=== PATIENT | female | born 1960 | race Caucasian/White ===

== ENCOUNTER 2017-10-23 06:30 | Inpatient (IN) | payer OTHER ==
[~2017-10-23] VITALS: Ht 175.3 cm; Wt 81.6 kg
[~2017-10-23 06:30] MED LIST: DOXYCYCLINE PO
[2017-10-23 06:34] VITALS: BP 132/67
[2017-10-23 07:48] LABS: ABSOLUTE EOSINOPHILS 0.1 thou/uL (0.0-0.7); ABSOLUTE LYMPHOCYTES 1.9 thou/uL (0.8-5.3); ABSOLUTE MONOCYTES 0.4 thou/uL (0.0-1.2); ABSOLUTE NEUTROPHILS 3.3 thou/uL (1.6-8.1); BASOPHILS 0.5 %; EOSINOPHILS 1.1 %; HEMATOCRIT 40.3 % (37.0-47.0); HEMOGLOBIN 13.3 gm/dL (12.0-15.0); LYMPHOCYTES 33.9 %; MCH 28.9 pg (26.0-34.0); MCHC 32.9 g/dL (28.0-37.0); MCV 87.8 fL (80.0-100.0); MONOCYTES 6.4 %; MPV 8.7 fl. (7.2-11.1); NUCLEATED RBCS 0 /100WBC; PLATELET COUNT* 193 thou/uL (150-400); POLYS 58.1 %; RBC 4.59 mil/uL (4.20-5.00); RDW-CV 13.7 % (10.5-14.5); WBC 5.7 thou/uL (4.0-11.0)
[2017-10-23 07:53] LABS: ANION GAP 8 mmol/L (7-16); BUN 15 mg/dL (7-18); CALCIUM 9.7 mg/dL (8.5-10.1); CHLORIDE 106 mmol/L (98-107); CO2 27 mmol/L (21-32); CREATININE 0.8 mg/dL (0.6-1.3); GLUCOSE 81 mg/dL (70-99); POTASSIUM 3.6 mmol/L (3.5-5.1); SODIUM 141 mmol/L (136-145)
[2017-10-23 08:04] LABS: ALBUMIN 3.9 g/dL (3.4-5.0); ALKALINE PHOSPHATASE 85 U/L (46-116); LIPASE 156 U/L (73-393); MAGNESIUM 2.2 mg/dL (1.8-2.4); NT-PRO BRAIN NAT PEPTIDE 49 pg/mL (<300); SGOT 16 U/L (15-37); SGPT 23 U/L (30-65); TOTAL BILIRUBIN 0.4 mg/dL (<0.1-1.0); TOTAL PROTEIN 7.4 g/dL (6.4-8.2); TROPONIN-I LEVEL <0.06 ng/mL (<0.06)
[2017-10-23 09:56] VITALS: BP 119/65
[2017-10-23 10:05] VITALS: BP 114/64
[2017-10-23] MEDS ORDERED: ALLEGRA-D 24 H1 EACH PO (10:40)
[2017-10-23] MEDS ORDERED: UNICOMPLEX M TA1 TA1 PO ×2 (10:41)
[2017-10-23] MEDS ORDERED: CALCIUM 500 +1 EAC5 PO (10:41)
--- NOTE | 2017-10-23 11:39 | NUR ---
RECIEVED REPORT FROM LUZMA IN ED AND ASSUMED CARE OF PT @ 1005.PT IS A/O X4,VSS,TRACING SR ON THE MONITOR.LUNG SOUNDS ARE CLEAR DIMINSHED.PT ON 2L O2 NC PER CHEST PAIN PROTOCOL WITH O2 SAT @ 100% LAST BM WAS YESTERDAY.IV RIGHT AC PATENT AND SALINE LOCKED.PT IS ANXIOUS BUT COOPERATIVE.PT C/O HEADACHE PAIN AND CHEST TIGHTNESS-RECEIVED MEDICATIONS IN THE ED WITH NO RELIEF.PT UP AD ROYER IN THE ROOM.PT LEFT RESTING IN BED WITH CALL LIGHT IN PLACE. FAMILY AT BEDSIDE.WILL CONTINUE TO MONITOR.
[2017-10-23 11:49] VITALS: BP 99/60
--- NOTE | 2017-10-23 12:13 | EKG ---
[place] [address] ELECTROCARDIOGRAM REPORT Name: LIV GORMAN Room: [address] IN [facility]#: [id number] Admission: 10/23/17 Attend Phys: Seven Calderon, Discharge: Date of : 58 Report #: [id number] THIS REPORT FOR: //name// [facility] ED Test Date: 2017-10-23 Test Time: 06:38:18 Pat Name: LIV GORMAN Department: Room: Gender: F Second Language Tutor: JEREMIAH : 1960 Requested By: Randell Avina Order Number: [id number] MD: Sergey Jama Measurements Intervals [place] Rate: 76 P: 34 ID: 122 QRS: 60 QRSD: 104 T: 26 QT: 405 QTc: 456 Interpretive Statements Sinus rhythm nonspecific st changes Compared to ECG 01/07/2012 23:02:36 st changes noted Electronically Signed On 10-23-2017 12:13:47 CDT by Sergey Jama [email or web address] <ELECTRONICALLY SIGNED> By: Sergey Jama MD, [facility] 10/23/17 1213 7 7 Sergey aJma MD, FACC /EPI
--- NOTE | 2017-10-23 17:17 | EXE ---
[place] [address] STRESS ECHOCARDIOGRAM Name: GORMANLIV Room: [address] IN [facility]#: [id number] Admission: 10/23/17 Attend Phys: Seven Carter Discharge: Date of : 58 Date of Service: 10/23/17 1717 Report #: [id number] THIS REPORT FOR: //name// APPROVED REPORT Study performed: 10/23/2017 16:15:31 Exam: Stress Echocardiogram Indication: Chest pain , Dyspnea Patient Location: In-Patient Stress Nurse: Majo Cohen RN Supervising Physician: Sergey Jama MD Ht: 5 ft 9 in HR: 78 bpm BP: 116/77 mmHg Medical History Medications: Aspirin Procedure The patient underwent an Exercise Stress Test using the Ayden Protocol. Blood pressure, heart rate, and EKG were monitored. An Echocardiogram was performed by nuclear medicine technician in four stages in quad fashion. At peak stress, four selected images were obtained and placed side by side with resting images for comparison. Stress Test Details Stress Test: Exercise stress testing was performed using a Ayden protocol. HR Resting HR: 78 bpm Max Heart Rate (APMHR): 162 bpm Max HR Achieved: 145 bpm Target HR (85% APMHR): 137 bpm % of APMHR: 89 Recovery HR: 65 bpm HR response to stress: Normal HR response to stress BP Resting BP: 116/77 mmHg Max BP: 168/62 mmHg Recovery BP: 124/60 mmHg ECG Resting ECG: Sinus Rhythm Stress ECG: Sinus Rhythm, nonspecific ST-T abnormalities ST Change: [place] [address] STRESS ECHOCARDIOGRAM Name: LIV GORMAN Room: [address] IN [facility]#: [id number] Admission: 10/23/17 Attend Phys: Seven Carter Discharge: Date of : 58 Date of Service: 10/23/17 1717 Report #: [id number] Maximum [address] Deviation: 0.5 mm Arrhythmia: SVT of 5 beats Recovery ECG: Sinus Rhythm, nonspecific ST-T abnormalities Recovery ST Change: Upsloping ST depression Recovery ST Deviation: 0.5 mm Recovery Arrhythmia: VPC Clinical Reason for Termination: Dyspnea Exercise duration: 5 min 55 sec Highest Stage Achieved: Stage 2: 2.5 mph at 12% grade. Exercise capacity: 7.05 METs Pre-Stress Echo The resting Echocardiogram showed normal left ventricular contractility with an estimated Ejection Fraction of about 55-60%. Post-Stress Echo The stress Echocardiogram showed normal left ventricular contractility with an estimated Ejection Fraction of about 65-70%. Conclusion Clinical Response: Non-ischemic Exercise Capacity: Average Stress ECG Response: Indeterminant Stress Echo Images: Non-ischemic low risk stress echo for future cardiac events Other Information Study Quality: Good <Conclusion> low risk stress echo for future cardiac events <ELECTRONICALLY SIGNED> By: Sergey Jama MD, [facility] 10/23/171716 16 16 Sergey Jama MD, FACC /INF
--- NOTE | 2017-10-23 17:45 | NUR ---
PT STRESS ECHO COMPLETED WITH NORMAL RESULTS.CARDIOLOGY OK PT TO D/C IF OK WITH HOSPITALIST.VSS.CARDIAC MONITORING IN PLACE WITH NO CHANGES.PT REMAINS ON 2L O2 NC FOR COMFORT.PT PROGRESSING TOWARDS GOALS.IV PATENT AND SALINE LOCKED.PT INFORMED OF PLAN OF CARE AND COMMUNICATES UNDERSTANDING.HOURLY ROUNDING COMPLETED FOR PT SAFETY.CALL LIGHT IN PLACE.WILL CONTINUE TO MONITOR FOR DURATION OF SHIFT.
[2017-10-23 18:16] VITALS: BP 99/60
--- NOTE | 2017-10-28 14:13 | CON ---
[address] [address] CONSULTATION Name: LIV GORMAN Room: [address] IN [facility]#: [id number] Admission: 10/23/17 Attend Phys: Seven Calderon, Discharge: 10/23/17 Date of : 58 Report #: [id number] THIS REPORT FOR: //name// CC: Dr. Eboni Lyn DATE OF SERVICE: 10/23/2017 TYPE OF REPORT: Cardiology consultation. HISTORY OF PRESENT ILLNESS: The patient is a 57-year-old female who I was asked to see in the hospital today after she complained of chest pain. The patient has no previous history of heart disease. In fact, she exercises on an elliptical every week day after work. She was doing well until the past few days she has not felt well. Yesterday, she got home from work to work on elliptical and did not feel well. Her left arm was somewhat numb, but she could move the arm. There is no swelling or rash. She actually stopped on elliptical because she felt so fatigued. She had to lie down. She notes a pressure in her chest, is worse if she took a deep breath. She ate dinner. She felt somewhat short of breath. She went to bed last night, woke up at 5 this morning. She was so weak she decided not to go to work but came to the hospital with her by car. She denied the chest pressure radiating to her arms. She has had no cough or bleeding. She denies any trauma to her chest. She denies associated diaphoresis or nausea. She denied any trauma to her chest or recent rash. She notes occasional irregular heartbeat, but she has had no recent syncope. PAST MEDICAL HISTORY: Significant for appendectomy, tonsillectomy and hysterectomy. She has no history of hypertension, diabetes or hyperlipidemia. MEDICATIONS: Her only medication includes doxycycline for rosacea. ALLERGIES: She has an allergy to PENICILLIN. FAMILY HISTORY: Her mother had 3 stents. SOCIAL HISTORY: She is , lives here in [place] with her . She works at [employer]. She does quite a bit of walking at work. No smoking or alcohol abuse. REVIEW OF SYSTEMS: She has had no history of stroke. She was diagnosed with vertigo in the past. She has a history of asthma. No history of peptic ulcer disease, liver disease, kidney disease, cancer, psychiatric illness [place] [address] CONSULTATION Name: LIV GORMAN [place] Room: [address]#: [id number] Admission: 10/23/17 Attend Phys: Seven Calderon, Discharge: 10/23/17 Date of : 58 Report #: [id number] PHYSICAL EXAMINATION: GENERAL: Revealed a middle-aged female lying in bed. She appeared in no distress. VITAL SIGNS: She had a blood pressure of 120/60, pulse 60 and she is afebrile. HEENT: She was anicteric. Conjunctivae pink. Mucous membranes moist. NECK: Veins nondistended. No carotid bruits. Neck supple. CHEST: Clear to auscultation. CARDIOVASCULAR: Regular rate and rhythm without rub or murmur. ABDOMEN: Soft and nontender. EXTREMITIES: Had no edema. Posterior tibial pulse 2+ bilaterally. SKIN: Warm and dry. NEUROLOGICAL: Nonfocal. RADIOLOGICAL DATA: ECG showed a sinus rhythm with nonspecific ST-segment changes. X-rays in the Emergency Room, she had a portable chest x-ray this morning that showed normal heart size and clear lung sparks. LABORATORY DATA: Her lab work, sodium 141 and creatinine 0.8. Liver enzymes were negative. Troponin 0.06. White blood cell count 5.7 and hemoglobin 13.3. IMPRESSION AND RECOMMENDATIONS: 1. Chest pressure. Atypical for angina. The patient has minimal risk factors. Because of her abnormal ECG, I would recommend a stress echocardiogram. 2. Fatigue. I would check thyroid function studies. 3. History of asthma. 4. Left arm numbness. No evidence of vascular compromise. Consider neuropathy. <ELECTRONICALLY SIGNED> By: Sergey Jama MD, FACC 10/28/17 1413 1332 [id number] Jama MD, FACC /nt
== END 2017-10-23 18:43 | disposition home or self-care (01) | DRG 206 ==
LOC: M.ERS 06:30 → M.TBA-ER 09:13 → M.2W 09:13
PROVIDERS: Emergency Medicine Emergency Medical Services; ADMIT Family Medicine
DX: M94.0 Chondrocostal junction syndrome [Tietze] (principal); I20.9 Angina pectoris, unspecified; R20.0 Anesthesia of skin; R53.83 Other fatigue; F41.9 Anxiety disorder, unspecified; J45.909 Unspecified asthma, uncomplicated; Z56.3 Stressful work schedule; Z98.890 Other specified postprocedural states; Z90.710 Acquired absence of both cervix and uterus; Z88.1 Allergy status to other antibiotic agents; Z88.0 Allergy status to penicillin; Z82.49 Family history of ischemic heart disease and other diseases of the circulatory system